=== PATIENT | male | born 1970 | race Caucasian/White ===

== ENCOUNTER 2017-12-28 07:54 | Outpatient (CLI) | payer OTHER ==
--- NOTE | 2017-12-28 11:16 | MRI Report ---
EXAM: RIGHT FEMUR/THIGH MRI WITHOUT CONTRAST EXAM DATE: 12/28/2017 09:00 AM. CLINICAL HISTORY: Right thigh pain for 6-8 months. Right thigh numbness. COMPARISON: None. TECHNIQUE: Multiplanar, multisequence T1-weighted and fluid-sensitive sequences of the femur/thigh wi thout contrast. Other: None. FINDINGS: Bones: No fractures or subluxations. No marrow edema. No bone lesions. Joint Spaces: Visualized portions of the hip and knee joints are unremarkable on these large field-of -view images. Tendons: The visualized hamstring origins are unremarkable. Musculature: No edema or fatty atrophy. Other: The visualized sciatic and femoral nerves are unremarkable. The subcutaneous tissues are unrem arkable. IMPRESSION: No MRI abnormalities in the femur/thigh. [facility] MUSCULOSKE[facility] SECTION Referring Provider Line: [phone] SITE ID: [id number]
== END 2017-12-28 07:55 | disposition home or self-care (01) ==
LOC: DI 07:54
PROVIDERS: ATTEND Radiology Diagnostic Radiology
DX: M79.651 Pain in right thigh (principal)

== ENCOUNTER 2018-05-08 10:15 | Outpatient (CLI) | payer OTHER | END 2018-05-08 10:16 | disposition home or self-care (01) | LOC: SC 10:15 | PROVIDERS: ATTEND Internal Medicine Pulmonary Disease | DX: G47.10 Hypersomnia, unspecified (principal); R06.83 Snoring; G47.8 Other sleep disorders | CPT/HCPCS: 99203; 99212 ==

== ENCOUNTER 2018-06-17 20:36 | Outpatient (CLI) | payer OTHER | END 2018-06-17 20:37 | disposition home or self-care (01) | LOC: SC 20:36 | PROVIDERS: ATTEND Internal Medicine Pulmonary Disease | DX: R06.83 Snoring (principal); G47.61 Periodic limb movement disorder | CPT/HCPCS: 95810 ==

== ENCOUNTER 2018-07-03 13:03 | Outpatient (CLI) | payer OTHER | END 2018-07-03 13:04 | disposition home or self-care (01) | LOC: SC 13:03 | PROVIDERS: ATTEND Internal Medicine Pulmonary Disease | DX: R06.83 Snoring (principal); G47.61 Periodic limb movement disorder | CPT/HCPCS: 99212; 99213 ==